=== PATIENT | female | born 1950 | race Caucasian/White ===

== ENCOUNTER 2021-06-21 13:55 | Emergency (ER) | payer MEDICARE, OTHER ==
[~2021-06-21] VITALS: Ht 165.1 cm; Wt 66.8 kg
[2021-06-21 15:18] VITALS: BP 124/59
[2021-06-21] MEDS ORDERED: PER5325T PO (16:39)
== END 2021-06-21 17:03 | disposition home or self-care (01) ==
LOC: ER 13:57
DX: S42.202A Unspecified fracture of upper end of left humerus, initial encounter for closed fracture (principal); M79.602 Pain in left arm; F41.9 Anxiety disorder, unspecified; F32.A Depression, unspecified; Z79.899 Other long term (current) drug therapy; X58.XXXA Exposure to other specified factors, initial encounter; Y93.9 Activity, unspecified; Y92.89 Other specified places as the place of occurrence of the external cause; Y99.8 Other external cause status
CPT/HCPCS: 29105; 73030; 99284

== ENCOUNTER 2025-01-17 22:42 | Emergency (ER) | payer MEDICARE, OTHER ==
[~2025-01-17] VITALS: Ht 165.1 cm; Wt 64.4 kg
[~2025-01-17 22:42] MED LIST: ALPR1TAB7 PO; APIX5TAB3 PO; COR3.125T PO; SERT-434 PO; TAM50T PO
[2025-01-17 22:48] VITALS: BP 148/79; PULSE 75; TEMP 98.1; O2SAT 97
[2025-01-17 23:03] LABS: MEAN PLATELET VOLUME 6.8 FL (7.4-10.4); RED CELL DISTRIBUTION WIDTH 13.1 % (11.5-14.5)
[2025-01-17 23:08] VITALS: RESP 16
--- NOTE | 2025-01-17 23:12 | Physician Documentation ---
History of Present Illness ~ Chief Complaint: Hypertension Stated Complaint: HIGH BP A ALS Time Seen by MD: 23:11 Primary Medical Doctor: [facility] HPI Patient presents to the emergency room with concerns of her blood pressure. She has history of high blood pressure. She noted that she had a headache this evening therefore she took her blood pressure and found it to be 180 systolic therefore came in to be evaluated. She reports compliance with her medications. Headache has since resolved. History of white coat syndrome. Medication Reconciliation Allergies: Coded Allergies: No Known Allergies (Unverified , 01/11/23) Scheduled Alprazolam (Alprazolam), 1 TAB PO QID, (Reported) Apixaban (Eliquis), 5 MG PO BID Carvedilol (Carvedilol), 6.25 MG PO BID Flecainide Acetate (Tambocor), 100 MG PO Q12H Sertraline HCl (Sertraline HCl), 1 TAB PO BID, (Reported) Past Medical History Past Medical History: Anxiety, Depression Past Surgical History: no surgical history Alcohol Use: None Drug Use: none Lives with: Family Lives In: Home Review of Systems ROS All review of systems negative except as per HPI Physical Exam Vital Signs: Temperature: 98.1, Heart Rate: 75, Respiratory Rate: 16, BP: 148/79, Pulse Oximetry: 97, Weight: 64.400 Oxygen Flow Rate: 0 Physical Exam General: Patient is awake, alert, oriented x4 in no acute distress and well appearing.~ Head: Normocephalic and atraumatic. Eyes: Conjunctival normal. EOMI. PERRL. ENT: Mucous membranes moist. Neck: Supple, trachea is midline. Chest: Clear to auscultation bilaterally without rales, rhonchi, or wheezes. There is no accessory muscle use or retractions. Cardiac: RRR without murmurs, gallops, or rubs. Progress Results/Orders Results/Orders Orders - JIM ENGLISH MD Chest,Single View (01/17/25 22:52) Monitor (01/17/25 22:52) Saline Lock (01/17/25 22:52) Oxygen (01/17/25 22:52) Electrocardiogram (01/17/25 22:52) Hs Troponin I W Calculations (01/18/25 00:52) Hs Troponin I W Calculations (01/18/25 01:52) Completed Orders - JIM ENGLISH MD Cbc/Diff (01/17/25 22:52) BMP (01/17/25 22:52) PBNP (01/17/25 22:52) Hs Troponin I W Calculations (01/17/25 22:52) Vital Signs 01/17/25 01/17/25 22:48 23:08 Temp 98.1 Pulse 75 Resp 16 16 B/P (MAP) 148/79 Pulse Ox 97 O2 Flow Rate 0 Laboratory Tests Test 01/17/25 22:33 White Blood Count 10.7 Red Blood Count 4.25 Hemoglobin 13.2 Hematocrit 38.7 Mean Corpuscular Volume 91.0 Mean Corpuscular Hemoglobin 31.1 H Mean Corpuscular Hemoglobin Concent 34.2 Red Cell Distribution Width 13.1 Platelet Count 305 Mean Platelet Volume 6.8 L Neutrophils (%) (Auto) 56.2 Lymphocytes (%) (Auto) 34.0 Monocytes (%) (Auto) 8.0 Eosinophils (%) (Auto) 1.3 Basophils (%) (Auto) 0.5 Neutrophils # (Auto) 6.0 Lymphocytes # (Auto) 3.6 Monocytes # (Auto) 0.9 Eosinophils # (Auto) 0.1 Basophils # (Auto) 0.0 CBC Comment Sodium Level 134 L Potassium Level 4.5 Chloride Level 94 L Carbon Dioxide Level 30.7 Anion Gap 9 Blood Urea Nitrogen 13 Creatinine 0.74 Estimated GFR/1.73 m2 77 BUN/Creatinine Ratio 17.6 Glucose Level 112 H Calcium Level 9.0 Troponin I High Sensitivity 5 Pro-B-Type Natriuretic Peptide 191 H Albumin 3.7 Chemistry Comments Medical Decision Making Findings Patient presented to the emergency room with elevated blood pressures. Differentials include but are not limited to end-organ damage, hypertensive emergency, uncontrolled hypertension therefore labs ordered which were reassuring for no end-organ damage. Patient's blood pressure has spontaneously improved. The need to follow up with her doctor discussed. Departure Disposition: HOME / SELF CARE / HOMELESS Impression: Primary Impression: Uncontrolled hypertension Condition: Stable Discharge Instructions: Hypertension, Adult Referrals: NO PRIMARY CARE PROVIDER (PCP) Signature Scribe Signature: No scribe Attestation: The note accurately reflects work and decisions made by me.Jim English MD 01/17/25 23:25 JIM ENGLISH MD Jan 17, 2025 23:12
[2025-01-17 23:23] LABS: CREATININE 0.74 MG/DL (0.40-0.90); PRO BRAIN NATRIURETIC PEPTIDE 191 PG/ML (0-125); TOTAL CARBON DIOXIDE 30.7 MMOL/L (24-32); eCRCL 62 ML/MIN; eGFR 77 ML/MIN
--- NOTE | 2025-01-18 06:01 | ELECTROCARDIOGRAPH REPORT ---
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
== END 2025-01-17 23:54 | disposition home or self-care (01) ==
LOC: ER 22:42
DX: I10 Essential (primary) hypertension (principal); F32.A Depression, unspecified; F41.9 Anxiety disorder, unspecified; Z79.899 Other long term (current) drug therapy
CPT/HCPCS: 36415; 80048; 83880; 84484; 85025; 93005; 99284